=== PATIENT | female | born 1995 | race Caucasian/White ===

== ENCOUNTER 2016-12-25 08:18 | Day surgery (SDC) | payer BC ==
[~2016-12-25 08:18] MED LIST: BEYAZ1 TAB; OMNICEF 300 MG300 MG PO
--- NOTE | 2016-12-25 09:20 | Operative Note ---
Endoscopy Report Date: 12/25/16 Preoperative diagnosis: Rectal bleeding, stool frequency Procedure Type of procedure: Total colonoscopy to terminal ileum with biopsies Indications: 21-year-old white female. She was sent for surgical consultation a few months ago for possible colonoscopy. At that time she was having anorectal pain and bleeding. It appears as though she may have an anal fissure and she was treated with dietary regimen and fiber supplementation. She was given a prescription for diltiazem ointment but this was cost prohibitive. Her symptoms did improve but she did have some episodes of pain after bowel movements. She also describes multiple frequent stools, 6-8 per day. However, this is been present for several years. Her symptoms plan was made to proceed with colonoscopy to evaluate for possible inflammatory bowel disease and rule out microscopic colitis and evaluated for the anorectal discomfort. Consent was obtained and patient was taken to same-day surgery endoscopy procedure room. She was positioned in a lateral decubitus position. Adequate intravenous sedation was achieved and of 8 mg Versed and 200 g fentanyl for the duration of the procedure. Variable stiffness Olympus colonoscope was inserted via the anus and advanced to the cecum without significant difficulty. Appendiceal orifice and ileocecal valve were identified. Colonoscope was advanced into the terminal ileum which appeared grossly normal. Several biopsies were obtained. Colonoscope was withdrawn to the colon with careful surveillance. Random colon biopsies were obtained differentiating RIGHT in the LEFT. There was a diminutive hyperplastic appearing polyp near the rectosigmoid and this was removed with cold biopsy forceps. Retroflexion within the rectum revealed internal hemorrhoids which appeared be nonpathologic. At the completion of the procedure anoscopy was performed. There was no evidence of any fissure or pathologic hemorrhoids. Findings 1. Internal Hemorrhoids Follow-Up Follow-Up: No obvious pathology that would explain her symptoms. Follow-up on the results of the biopsies to evaluate for any microscopic disease. Symptoms may be functional and she could benefit from ongoing fiber supplementation and dietary regimen with limited medical treatment. at [id number]
[2016-12-25 14:22] VITALS: BP 120/77
== END 2016-12-25 09:45 | disposition home or self-care (01) ==
LOC: SDC 08:18
PROVIDERS: Surgery
PROC: 0DBN8ZX Excision of Sigmoid Colon, Via Natural or Artificial Opening Endoscopic, Diagnostic (ICD-10-PCS; 2016-12-25)
PROC: 0DBF8ZX Excision of Right Large Intestine, Via Natural or Artificial Opening Endoscopic, Diagnostic (ICD-10-PCS; 2016-12-25)
PROC: 0DBG8ZX Excision of Left Large Intestine, Via Natural or Artificial Opening Endoscopic, Diagnostic (ICD-10-PCS; principal; 2016-12-25 09:00)
DX: K62.5 Hemorrhage of anus and rectum (principal); K64.8 Other hemorrhoids; K63.5 Polyp of colon